=== PATIENT | male | born 1970 | race Caucasian/White ===

== ENCOUNTER → 2019-05-23 09:00 | Outpatient (CLI) | payer OTHER, SELFPAY ==
[2019-05-23 09:27] LABS: Basophils % 0.6 % (0.1-2.0); Eosinophils # 0.1 K/mm3 (0.0-0.4); Eosinophils % 1.7 % (0.1-12.0); Hematocrit 45.5 % (42.0-52.0); Hemoglobin 15.2 g/dL (14.1-18.0); Lymphocytes # 1.3 K/mm3 (0.7-4.5); Lymphocytes % 18.5 % (10-50); Mean Corpuscular HGB Conc 33.4 g/dL (31.8-35.4); Mean Corpuscular Hemoglobin 35.1 pg (27.0-31.2); Mean Corpuscular Volume 105.1 fl (80-94); Mean Platelet Volume 7.8 fl (7.4-10.4); Monocytes # 1.1 K/mm3 (0.1-1.0); Monocytes % 16.1 % (1.7-9.3); Neutrophils # 4.3 K/mm3 (1.8-7.8); Platelet Count 381 K/mm3 (142-424); Red Blood Count 4.33 M/mm3 (4.60-6.20); White Blood Count 6.8 K/mm3 (4.8-10.8)
[2019-05-23 11:13] LABS: Chloride 97 mmol/L (98-107)
[2019-05-23 11:14] LABS: Potassium 5.4 mmoL/L (3.5-5.1); Sodium 135 mmol/L (136-145)
[2019-05-23 11:16] LABS: Alanine Aminotransferase 274 U/L (12-78); Anion Gap 13.4 mEq/L (5-15); Aspartate Amino Transferase 129 U/L (17-59); Blood Urea Nitrogen 12 mg/dl (9-20); Carbon Dioxide 30 mmol/L (22.0-30.0); Estimated Glomerular Filt Rate 119 ml/min (>60); GFR (African American) 144 ML/MIN (>60)
[2019-05-23 11:17] LABS: Albumin Level 3.8 g/dl (3.5-5.0); Albumin/Globulin Ratio 1.5 (1.1-1.8); Alkaline Phosphatase 124 U/L (38-126); Bilirubin,Total 0.5 mg/dl (0.2-1.3); Calcium 9.4 mg/dl (8.4-10.2); Chol/HDL Ratio 3.2 (1-3.5); Cholesterol 168 mg/dl (140-200); Globulin 2.6 g/dL (1.3-3.2); Glucose 110 mg/dl (74-100); HDL Cholesterol 53 mg/dl (40-60); Total Protein,Serum 6.4 g/dl (6.3-8.2); Triglycerides 96 mg/dl (30-150); VLDL Cholesterol 19 mg/dL (0-40)
[2019-05-23 11:36] LABS: T4 (Thyroxine) 11.3 ug/dl (5.53-11.0)
[2019-05-23 11:49] LABS: Thyroid Stimulating Hormone 1.53 uIU/mL (0.465-4.68)
[2019-05-24 14:34] LABS: Amylase 69 U/L (30-110); Lipase 268 U/L (23-300)
[2019-05-24 15:38] LABS: Hemoglobin A1C 5.5 % (4.0-6.0)
[2019-05-25 06:41] LABS: Vitamin D 25 Hydroxy 24.7 ng/mL (30.0-100.0)
[2019-05-26 09:41] LABS: Hep A Ab, IgM Negative (Negative); Hepatitis B Core Antibody IgM Negative (Negative); Hepatitis B Surface Antigen Negative (Negative)
[2019-05-26 10:14] LABS: Hepatitis C Antibody <0.1 s/co ratio (0.0-0.9)
== END ==
PROVIDERS: Visit Provider Nurse Practitioner Family
DX: R53.83 Other fatigue (principal); R11.2 Nausea with vomiting, unspecified; F41.9 Anxiety disorder, unspecified; E55.9 Vitamin D deficiency, unspecified; R73.9 Hyperglycemia, unspecified; R74.8 Abnormal levels of other serum enzymes; Z76.89 Persons encountering health services in other specified circumstances; Z72.89 Other problems related to lifestyle
CPT/HCPCS: 36415; 71046; 80053; 80061; 80074; 82150; 82652; 83036; 83690; 84436; 84443; 85025

== ENCOUNTER 2021-04-29 19:00 | Emergency (ER) | payer OTHER, SELFPAY ==
[2021-04-29 19:01] VITALS: RESP 18; TEMP 36.6; O2SAT 99; BMI 25.8
[2021-04-29 19:03] VITALS: BP 116/79; PULSE 71; RESP 22; O2SAT 95
--- NOTE | 2021-04-29 19:06 | CT_ITS ---
PROCEDURE INFORMATION: Exam: CT Head Without Contrast Exam date and time: 04/29/2021 7:06 PM Age: 50 years old Clinical indication: Syncope and collapse; Patient HX: Patient passed out and fell in floor. Found by children in unresponsive state. ; Additional info: Syncope, loc TECHNIQUE: Imaging protocol: Computed tomography of the head without contrast. Radiation optimization: All CT scans at this facility use at least one of these dose optimization techniques: automated exposure control; mA and/or kV adjustment per patient size (includes targeted exams where dose is matched to clinical indication); or iterative reconstruction. COMPARISON: No relevant prior studies available. FINDINGS: Brain: No acute intracranial findings. No intracranial hemorrhage. No edema, swelling or mass-effect. There is mild generalized cerebral atrophy/volume loss, prominent for age. Browning-white matter differentiation is preserved. No significant white matter disease visible. Minimal left tentorial calcification. Cerebral ventricles: The ventricles are normal for age. No hydrocephalus. Paranasal sinuses: No acute findings in the visualized sinuses. No significant sinus opacification or air-fluid levels. Mild right maxillary sinus mucosal thickening. Mastoid air cells: Mastoids are unremarkable as visualized, no effusions. Auditory system: Minimal cerumen in the left external auditory canal. The middle ears appear clear. Orbital cavity: No acute findings in the orbits, as visualized. Vasculature: Minimal calcified plaques in the intracranial carotid arteries. Bones/joints: No acute skull fracture. No lytic lesions. Soft tissues: There are no soft tissue masses or fluid collections. Dental: Most of the teeth appear to be missing on the highway administrative engineer topogram. IMPRESSION: 1. No acute findings. 2. There is no CT evidence of intracranial mass, intracranial hemorrhage, or acute infarct. 3. Generalized cerebral cortical atrophy/volume loss, prominent for age. 4. Additional nonemergency and chronic findings as above.
--- NOTE | 2021-04-29 19:15 | HMH.EDGENADL ---
ED Disposition Condition on Discharge: Good - Critical Care Critical Care Time: No <NormaArcher - Last Filed: 04/29/21 19:31> Condition on Discharge: Good <Loren Roa - Last Filed: 04/29/21 22:48> Clinical Impression: Alcoholic intoxication Syncope Qualifiers: Syncope type: unspecified Qualified Code(s): R55 - Syncope and collapse Disposition: Still a Patient Additional Instructions: Please follow up with your primary care physician in 2-3 days for further management. Please avoid driving while drinking or any other high risk behaviors that may harm you or others. You have also been provided resources on Alcohol quitting. Please return for any concerning symptoms such as seizures, passing out, worsening weakness, chest pain, inability or difficulty walking or any other concerning symptoms. Referrals: Norberto Hayden MD [Primary Care Provider] - Attestation: On 04/29/21, the high probability of a clinically significant, sudden or life threatening deterioration of the following system(s) required my full and direct attention, intervention and personal management. The time I documented below is in addition to time spent performing reported procedures but includes the following listed in this critical care notation. Medical Decision Making - Medical Records Medical records reviewed: Yes: I reviewed the patient's medical records. - Ike Inquiry Pt receiving controlled substance: No <NormaGianni - Last Filed: 04/29/21 19:31> - Lab Data Result diagrams: 04/29/21 19:02 04/29/21 19:02 <Loren Roa - Last Filed: 04/29/21 22:48> Vital Signs: 04/29/21 19:01 04/29/21 22:14 Temperature 98 F 98.2 F Temperature Source Oral Oral Pulse Rate 83 Respiratory Rate 18 18 Blood Pressure 114/81 02 Sat by Pulse Oximetry 99 97 Oxygen Delivery Method Room Air - Lab Data Lab Results 04/29/21 19:02: Plasma/Serum Alcohol 226 H 04/29/21 19:02: WBC 7.3, RBC 4.03 L, Hgb 15.2, Hct 46.4, MCV 114.9 H, MCH 37.7 H, MCHC 32.8, RDW 12.8, Plt Count 210, MPV 7.6, Neut % (Auto) 67.3, Lymph % (Auto) 19.8, [place] % (Auto) 9.3, Eos % (Auto) 1.5, Baso % (Auto) 2.1 H, Neut # (Auto) 4.9, Lymph # (Auto) 1.4, [place] # (Auto) 0.7, Eos # (Auto) 0.1, Baso # (Auto) 0.2 04/29/21 19:02: Sodium 129 L, Potassium 3.9, Chloride 96 L, Carbon Dioxide 24, Anion Gap 12.9, BUN 5 L, Creatinine 0.60 L, Estimated Creat Clear 152, Estimated GFR 141, Est GFR ( Amer) 171, Glucose 86, Calcium 9.0, Total Bilirubin 0.7, AST 91 H, ALT 50, Alkaline Phosphatase 133 H, Total Protein 7.3, Albumin 4.6, Globulin 2.7, Albumin/Globulin Ratio 1.7 04/29/21 19:02: Troponin I < 0.01 04/29/21 19:40: Urine Color Yellow, Urine Appearance Clear, Urine pH 6.0, Ur Specific [place] <= 1.005, Urine Protein Negative, Urine Glucose (UA) Negative, Urine Ketones Negative, Urine Blood Negative, Urine Nitrate Negative, Urine Bilirubin Negative, Urine Urobilinogen 0.2, Ur Leukocyte Esterase Negative, Urine RBC None, Urine WBC Occasional, Ur Squamous Epith Cells None, Urine Bacteria Trace Orders (Tests/Meds): ED MEDICATIONS Generic Name Dose Route Start Last Admin Trade Name Freq PRN Reason Stop Dose Admin Multivitamins 10 ml/ Thiamine 1,015 mls @ 150 mls/hr 04/29/21 19:30 04/29/21 19:48 HCl 100 mg/ Magnesium Sulfate IV 04/30/21 02:15 150 mls/hr 2 gm/ Lactated Ringer's .[id number] ALEJANDRA Administration Discontinued Medications Generic Name Dose Route Start Last Admin Trade Name Freq PRN Reason Stop Dose Admin Folic Acid 1 mg 04/29/21 19:17 04/29/21 19:49 Folic Acid 1mg Tablet PO 04/29/21 19:18 1 mg ONCE ONE Administration ORDERS Category Date Time Status Troponin I Q3H Lab 04/29/21 23:15 Ordered Troponin I Q3H Lab 04/30/21 02:15 Ordered EKG Request [ECG Request by /Nse] Stat Y 04/29/21 19:08 Ordered General Adult HPI - General Mode of Arrival: EMS Limitations: No Limitations Description of Symptoms (Recalled from E
[2021-04-29 19:34] LABS: Basophils # 0.2 K/mm3 (0-0.2); Basophils % 2.1 % (0.1-2.0); Eosinophils # 0.1 K/mm3 (0.0-0.4); Eosinophils % 1.5 % (0.1-12.0); Hematocrit 46.4 % (42.0-52.0); Hemoglobin 15.2 g/dL (14.1-18.0); Lymphocytes # 1.4 K/mm3 (0.7-4.5); Lymphocytes % 19.8 % (10-50); Mean Corpuscular HGB Conc 32.8 g/dL (31.8-35.4); Mean Corpuscular Hemoglobin 37.7 pg (27.0-31.2); Mean Corpuscular Volume 114.9 fl (80-94); Mean Platelet Volume 7.6 fl (7.4-10.4); Monocytes # 0.7 K/mm3 (0.1-1.0); Monocytes % 9.3 % (1.7-9.3); Neutrophils # 4.9 K/mm3 (1.8-7.8); Neutrophils % 67.3 % (37.0-80.0); Platelet Count 210 K/mm3 (142-424); Red Blood Count 4.03 M/mm3 (4.60-6.20); Red Cell Distribution Width 12.8 % (11.5-17.5); White Blood Count 7.3 K/mm3 (4.8-10.8)
[2021-04-29 19:39] LABS: Chloride 96 mmol/L (98-107); Sodium 129 mmol/L (136-145)
[2021-04-29 19:40] LABS: Potassium 3.9 mmoL/L (3.5-5.1)
[2021-04-29 19:42] LABS: Alanine Aminotransferase 50 U/L (12-78); Albumin Level 4.6 g/dl (3.5-5.0); Albumin/Globulin Ratio 1.7 (1.1-1.8); Alkaline Phosphatase 133 U/L (38-126); Anion Gap 12.9 mEq/L (5-15); Aspartate Amino Transferase 91 U/L (17-59); Bilirubin,Total 0.7 mg/dl (0.2-1.3); Blood Urea Nitrogen 5 mg/dl (9-20); Carbon Dioxide 24 mmol/L (22.0-30.0); Creatinine Clearance Estimated 152 mL/min (50-200); Estimated Glomerular Filt Rate 141 ml/min (>60); Ethyl Alcohol 226 mg/dl (0-10); GFR (African American) 171 ML/MIN (>60); Globulin 2.7 g/dL (1.3-3.2); Glucose 86 mg/dl (74-100); Total Protein,Serum 7.3 g/dl (6.3-8.2)
[2021-04-29 19:44] LABS: Microscopic, Urine URINE MICROSCOPIC (MICROSCOPIC)
--- NOTE | 2021-04-29 19:53 | ECG_ITS ---
APPROVED REPORT Exam: Resting ECG HR:51 bpm ECG Measurements Heart Rate 51 AXES SD 117 P 0 QRSd 102 QRS 55 QT 471 T 49 QTc 449 Conclusion SINUS BRADYCARDIA WITH SHORT SD INTERVAL BORDERLINE ECG UNCONFIRMED REPORT Electronically signed by : Wilian Godoy MD 05/01/2021 19:34:17
[2021-04-29 19:55] LABS: Appearance,Urine CLEAR (Clear); Bilirubin,Urine Negative (Negative); Blood, Urine Negative (Negative); Color,Urine YELLOW (Yellow); Glucose,Urine (UA) Negative (Negative); Ketones,Urine Negative (Negative); Leukocyte Esterase,Urine Negative (Negative); Nitrate,Urine Negative (Negative); Protein,Urine Negative (Negative); Specific Gravity, Urine <= 1.005 (1.005-1.030); Urobilinogen,Urine 0.2 EU/dl (0.2)
[2021-04-29 19:59] LABS: Bacteria,Urine Trace /lpf; WBC,Urine Occasional #/hpf (0-3)
[2021-04-29 20:37] LABS: Troponin I < 0.01 ng/ml (0.00-0.034)
[2021-04-29 21:00] VITALS: BP 109/82; PULSE 60; RESP 15; O2SAT 97
[2021-04-29 22:14] VITALS: BP 114/81; PULSE 83; RESP 18; TEMP 36.8; O2SAT 97
[2021-04-29 23:00] VITALS: BP 116/74; PULSE 60; RESP 14; TEMP 36.6; O2SAT 98
== END 2021-04-29 23:08 | disposition still patient (30) ==
PROVIDERS: Emergency Provider Emergency Medicine; PCP Emergency Medicine
DX: R55 Syncope and collapse (principal); F10.129 Alcohol abuse with intoxication, unspecified; I10 Essential (primary) hypertension; F41.9 Anxiety disorder, unspecified; F17.210 Nicotine dependence, cigarettes, uncomplicated
CPT/HCPCS: 70450; 80053; 81001; 84484; 85025; 93005; 96365; 99283

== ENCOUNTER → 2021-10-21 17:17 | Outpatient (CLI) | payer OTHER, SELFPAY ==
[2021-10-21 15:22] LABS: Cholesterol 206 mg/dl (140-200); HDL Cholesterol 52 mg/dl (40-60); Triglycerides 355 mg/dl (30-150); VLDL Cholesterol 71 mg/dL (0-40)
[2021-10-21 15:33] LABS: Direct LDL Cholesterol 115.05 mg/dL (100-129)
== END ==
PROVIDERS: PCP Family Medicine; Visit Provider Family Medicine
DX: E78.5 Hyperlipidemia, unspecified (principal)
CPT/HCPCS: 80061

== ENCOUNTER → 2021-10-27 10:00 | Outpatient (CLI) | payer OTHER, SELFPAY ==
[2021-10-27 10:53] LABS: Basophils % 0.5 % (0.1-2.0); Eosinophils # 0.1 K/mm3 (0.0-0.4); Eosinophils % 0.8 % (0.1-12.0); Hematocrit 48.4 % (42.0-52.0); Hemoglobin 15.4 g/dL (14.1-18.0); Lymphocytes # 0.7 K/mm3 (0.7-4.5); Lymphocytes % 8.9 % (10-50); Mean Corpuscular HGB Conc 31.8 g/dL (31.8-35.4); Mean Corpuscular Volume 113.1 fl (80-94); Mean Platelet Volume 8.3 fl (7.4-10.4); Monocytes # 0.8 K/mm3 (0.1-1.0); Monocytes % 10.5 % (1.7-9.3); Neutrophils # 6.4 K/mm3 (1.8-7.8); Neutrophils % 79.3 % (37.0-80.0); Platelet Count 202 K/mm3 (142-424); Red Blood Count 4.28 M/mm3 (4.60-6.20); Red Cell Distribution Width 12.9 % (11.5-17.5); White Blood Count 8.1 K/mm3 (4.8-10.8)
[2021-10-27 11:15] LABS: Alanine Aminotransferase 63 U/L (12-78); Albumin Level 4.2 g/dl (3.5-5.0); Alkaline Phosphatase 198 U/L (38-126); Amylase 76 U/L (30-110); Anion Gap 12.3 mEq/L (5-15); Aspartate Amino Transferase 129 U/L (17-59); Bilirubin,Direct 0.5 mg/dl (0.0-0.4); Bilirubin,Indirect 0.8 mg/dL (0.0-0.9); Bilirubin,Total 1.3 mg/dl (0.2-1.3); Bilirubin,Unconjugated 0.8 mg/dL (0.0-1.1); Blood Urea Nitrogen 7 mg/dl (9-20); Calcium 9.5 mg/dl (8.4-10.2); Carbon Dioxide 29 mmol/L (22.0-30.0); Chloride 94 mmol/L (98-107); Estimated Glomerular Filt Rate 141 ml/min (>60); GFR (African American) 171 ML/MIN (>60); Glucose 131 mg/dl (74-100); Lipase 137 U/L (23-300); Magnesium 1.9 mg/dl (1.6-2.3); Potassium 4.3 mmoL/L (3.5-5.1); Sodium 131 mmol/L (136-145)
[2021-10-27 11:24] LABS: NT Pro Brain Natriuretic Pep. 190 pg/mL (0-125)
[2021-10-27 11:25] LABS: Troponin I < 0.01 ng/ml (0.00-0.034)
[2021-10-27 11:30] LABS: Free T4 (Free Thyroxine) 0.96 ng/dl (0.78-2.19)
[2021-10-27 11:43] LABS: Thyroid Stimulating Hormone 3.37 uIU/mL (0.465-4.68)
[2021-10-27 13:28] LABS: Hemoglobin A1C 4.7 % (4.0-6.0)
== END ==
PROVIDERS: PCP Family Medicine; Visit Provider Physician Assistant
DX: R06.00 Dyspnea, unspecified (principal); Z01.810 Encounter for preprocedural cardiovascular examination; R07.9 Chest pain, unspecified; R07.89 Other chest pain; I10 Essential (primary) hypertension; E78.1 Pure hyperglyceridemia; R20.0 Anesthesia of skin; R42 Dizziness and giddiness; R53.83 Other fatigue; R55 Syncope and collapse; R60.0 Localized edema; F32.A Depression, unspecified; F43.10 Post-traumatic stress disorder, unspecified; K42.9 Umbilical hernia without obstruction or gangrene; Z82.49 Family history of ischemic heart disease and other diseases of the circulatory system; Z98.1 Arthrodesis status
CPT/HCPCS: 36415; 80048; 80076; 82150; 83036; 83690; 83735; 83880; 84439; 84443; 84484; 85025

== ENCOUNTER → 2021-10-31 06:34 | Outpatient (CLI) | payer OTHER, SELFPAY ==
--- NOTE | 2021-10-31 | US_ITS ---
FINAL REPORT CLINICAL HISTORY: smoker, HTN, HLD, CP, Edema, SOB, Pre-op, Alcohol use FINDINGS: BILATERAL ANKLE BRACHIAL INDICES Pressure indices are as follows are: RIGHT LOWER EXTREMITY Ankle brachial pressure index: 1.36 Toe brachial pressure index: 0.93 COMMENTS: Normal LEFT LOWER EXTREMITY Ankle brachial pressure index: 1.41 Toe brachial pressure index: 0.92 COMMENTS: Normal IMPRESSION: No evidence of significant obstructive peripheral vascular disease of the lower extremities. Reviewed, Interpreted and Dictated by Arian Younger III, MD Transcribed by Carmelita Claudio Authenticated and [facility]
--- NOTE | 2021-10-31 06:34 | CA_ITS ---
APPROVED REPORT EXAM: Comprehensive 2D, Doppler, and color-flow Echocardiogram Salt Grinder: Karyna Bose RDCS Ht: 5 ft 7 in Wt: 149lbs BSA: 1.78 BP: 117/82 mmHg Indications: cp,smoker,soa,syncope,edema,htn,hlp 2D Dimensions LVOT 2.08 cm (M/F) 1.5-2.5 M-Mode Dimensions RVDd 2.62 cm (0.9-2.6) LA Diam 3.52 cm (1.9-4.0) LVDd 5.70 cm (3.5-5.7) Ao Diam 3.59 cm (2.0-3.7) LVDs 3.91 cm (3.5-5.7) IVSd 0.83 cm (0.6-1.1) PWd 0.68 cm (0.6-1.1) EF (Teich) 58.60% FS 31.40% EDV (Teich) 160.00 mL TAPSE 2.44 (<1.7) ESV (Teich) 66.30 mL LV Diastology E Decel Time 160.00 (160-240 msec) E/A Ratio 1.4 MED E' 9.80 (< 7 cm/sec) E'/MED E' Ratio 7.97 (>14) LAT E' 11.10 (<10 cm/sec) E/LAT E' Ratio 7.04 (>14) Mitral Valve MV E Max Neto. 78.00 (40-130 cm/s) MV A Velocity 54.00 (40-130 cm/s) E/A Ratio 1.44 MV Decel. Time 160.00 (160-240 ms) MV PHT 47.00 ms Left Ventricle Left atrium is mildly enlarged, left ventricle is normal size estimated ejection fraction 55% with no regional wall motion abnormality, there is no concentric left ventricular hypertrophy, diastolic parameters are inconclusive. Right Ventricle Right atrium and right ventricle mildly enlarged with normal contractility. Aortic Valve Aortic valve is minimally thickened and fibrosed there is no aortic stenosis or aortic insufficiency. Mitral Valve Mitral valve is grossly normal. There is trace mitral regurgitation. Tricuspid Valve Tricuspid grossly normal, there is trace tricuspid regurgitation, tricuspid regurgitation jet velocity is inadequate for calculation of the right ventricular systolic pressure. Pulmonic Valve Pulmonic valve is poorly visualized. Great Vessels Aortic root is normal size. Inferior vena cava normal 7 normal inspiratory collapse. Pericardium No significant pericardial effusion noted. Conclusion 1. Mild biatrial enlargement, normal left ventricular size, estimated ejection fraction 55% with no regional wall motion abnormality, diastolic Parameters are inconclusive. 2. Mildly enlarged right ventricle with normal contractility. 3. Trace mitral and tricuspid regurgitation. 4. No significant pericardial effusion. 5. Inferior vena cava normal size with normal inspiratory collapse. Electronically signed by : Buzz Cano MD 10/31/2021 13:26:49
--- NOTE | 2021-10-31 06:34 | CA_ITS ---
APPROVED REPORT Exam: Pharmacologic Technologist: Yomaira Mtz, Ht: 5 ft 7 in Wt: 149 lbs BSA: 1.78 m2 HR: 68 bpm BP: 116/71 mmHg Medical History Medications: Lisinopril,,,,, PraZOSIN,,,,, Metoprolol Succinate ER,,,,, BuPROPION HCI,,,,, Stress Test Details Test: LEXISCAN Reason for pharmacologic stress test: physical limitation. HR Resting HR: 70 bpm Max Heart Rate (APMHR): 167.588030 bpm Max HR Achieved: 149 bpm Target HR (85% APMHR): 141.932088 bpm % of APMHR: 89.22 Recovery HR: 94 bpm BP Resting BP: 116/71 mmHg Max BP: 147/79 mmHg Recovery BP: 136.0/82.0 mmHg ECG Resting ECG: SR Clinical Exercise duration: 04:00 min Highest Stage Achieved: Exercise capacity: 1.0 METs Stress ECG Conclusion Symptoms: SOA & nausea w/ Lexiscan. Dry heaving w/ Lexiscan. Arrhythmias/Ectopy: None- motion artifact. ST-T Changes: <1.5mm ST Segment changes. Electronically signed by : Buzz Cano MD 10/31/2021 11:38:30
--- NOTE | 2021-10-31 06:34 | NM_ITS ---
APPROVED REPORT Exam: Nuclear Stress Test Indication: HTN, TOB USE, FM HX, C.P., SOB, SYNCOPE, EDEMA Patient Location: Outpatient Stress Tech: Yomaira Agarwal [place] Tech:DARLEEN Ramirez RT(R)(N) Ht: 5 ft 7 in Wt: 149 lbs HR: 68 bpm BP: 116/71 mmHg BSA: 1.78 m2 TID: 1.09 BMI: 23.3 History: HTN, TOB USE, FM HX, C.P., SOB, SYNCOPE, EDEMA Procedure: Patient received a 0.4 mg of intravenous Lexiscan, resting heart rate 68 bpm, resting blood pressure 116/71 mmHg, with Lexiscan maximum heart rate achived was 138 bpm which is Less than 85 % of the maximum predicted heart rate and blood pressure was 147/79 mmHg. With Lexiscan, patient denied any complaint of chest pain. SOA, NAUSEA Electrocardiogram Resting electrocardiogram shows sinus rhythm, with Lexiscan there is less than 1.[address] segment depression noted from the baseline EKG. The EKG portion of the Lexiscan is nondiagnostic. Cardiac Stress and Resting SPECT Images: Cardiac Stress and Resting SPECT images were obtained using technetium 99m Myoview 32.8 mCi stress and 9.71 mCi at rest. Gated SPECT analysis of segmental wall motion and calculation of the ejection fraction also done, prone images were also obtained. Cardiac stress and rest SPECT images show uniform myocardial activity without segmental perfusion abnormality, computer derived ejection fraction 56% with no regional wall motion abnormality, right ventricle is normal size and contractility. Conclusion: 1. The EKG portion of the Lexiscan is nondiagnostic. 2. No scintigraphic evidence of reversible ischemia seen, compared to ejection fraction is 56% with no regional wall motion abnormality, right ventricle is normal size and contractility. 3. Normal Lexiscan Myoview study. Electronically signed by : Buzz Cano MD 10/31/2021 11:40:25
== END ==
PROVIDERS: PCP Family Medicine; Visit Provider Physician Assistant
DX: R06.00 Dyspnea, unspecified (principal); R07.89 Other chest pain; R07.9 Chest pain, unspecified; R42 Dizziness and giddiness; R55 Syncope and collapse; Z01.810 Encounter for preprocedural cardiovascular examination; I10 Essential (primary) hypertension; R20.0 Anesthesia of skin; R53.83 Other fatigue; R60.0 Localized edema; Z82.49 Family history of ischemic heart disease and other diseases of the circulatory system; Z98.1 Arthrodesis status
CPT/HCPCS: 78452; 93017; 93306; 93923; A9502; J2785

== ENCOUNTER 2022-05-20 10:30 | Emergency (ER) | payer OTHER, SELFPAY ==
[2022-05-20] VITALS (12 sets, daily range): BP systolic 114–137; BP diastolic 71–95; PULSE 67–97; RESP 14–20; TEMP 36.6; O2SAT 96–99; BMI 22.8
--- NOTE | 2022-05-20 10:26 | ECG_ITS ---
APPROVED REPORT Exam: Resting ECG HR:70 bpm ECG Measurements Heart Rate 70 AXES AL 159 P 134 QRSd 110 QRS 68 QT 403 T 101 QTc 425 Conclusion SINUS RHYTHM LOW QRS VOLTAGE IN EXTREMITY LEADS [QRS DEFLECTION < 0.5 mV IN LIMB LEADS] BORDERLINE ECG UNCONFIRMED REPORT Electronically signed by : Wilian Godoy MD 05/20/2022 14:11:13
--- NOTE | 2022-05-20 10:43 | XR_ITS ---
FINAL REPORT CLINICAL HISTORY: shortness of air COMPARISON: 01/09/2019 FINDINGS: A single portable view of the chest was obtained. The heart size and pulmonary vascularity are within normal limits. The mediastinum is within normal limits. No acute pulmonary abnormality is identified. The bony thorax is intact. IMPRESSION: No active cardiopulmonary disease. Reviewed, Interpreted and Dictated by Arian Younger III, MD Transcribed by Nelia Bynum Authenticated and [facility]
[2022-05-20 10:47] LABS: Coronavirus 19, PCR Not Detected (NotDetected); Influenza A, PCR Not Detected (NotDetected); Influenza B, PCR Not Detected (NotDetected)
[2022-05-20 10:52] LABS: Basophils # 0.1 K/mm3 (0-0.2); Basophils % 1.6 % (0.1-2.0); Eosinophils # 0.1 K/mm3 (0.0-0.4); Eosinophils % 0.9 % (0.1-12.0); Hematocrit 39.3 % (42.0-52.0); Lymphocytes # 0.6 K/mm3 (0.7-4.5); Lymphocytes % 9.1 % (10-50); Mean Corpuscular HGB Conc 33.1 g/dL (31.8-35.4); Mean Corpuscular Hemoglobin 37.1 pg (27.0-31.2); Mean Platelet Volume 8.1 fl (7.4-10.4); Monocytes # 0.6 K/mm3 (0.1-1.0); Monocytes % 8.5 % (1.7-9.3); Neutrophils # 5.5 K/mm3 (1.8-7.8); Neutrophils % 79.9 % (37.0-80.0); Platelet Count 247 K/mm3 (142-424); Red Blood Count 3.51 M/mm3 (4.60-6.20); White Blood Count 6.9 K/mm3 (4.8-10.8)
[2022-05-20 10:56] LABS: Chloride 99 mmol/L (98-107)
[2022-05-20 10:57] LABS: Potassium 3.9 mmoL/L (3.5-5.1); Sodium 131 mmol/L (136-145)
[2022-05-20 10:59] LABS: Alanine Aminotransferase 57 U/L (12-78); Albumin Level 4.4 g/dl (3.5-5.0); Albumin/Globulin Ratio 1.3 (1.1-1.8); Alkaline Phosphatase 182 U/L (38-126); Anion Gap 8.9 mEq/L (5-15); Aspartate Amino Transferase 159 U/L (17-59); Bilirubin,Total 1.5 mg/dl (0.2-1.3); Blood Urea Nitrogen 7 mg/dl (9-20); Calcium 8.7 mg/dl (8.4-10.2); Carbon Dioxide 27 mmol/L (22.0-30.0); Creatinine Clearance Estimated 135 mL/min (50-200); Estimated Glomerular Filt Rate 140 ml/min (>60); GFR (African American) 170 ML/MIN (>60); Globulin 3.5 g/dL (1.3-3.2); Glucose 126 mg/dl (74-100); Total Protein,Serum 7.9 g/dl (6.3-8.2)
[2022-05-20 11:00] LABS: Lactic Acid 1.1 mmol/L (0.7-2.1)
[2022-05-20 11:17] LABS: Troponin I < 0.01 ng/ml (0.00-0.034)
[2022-05-20 11:23] LABS: Microscopic, Urine URINE MICROSCOPIC (MICROSCOPIC)
[2022-05-20 11:28] LABS: Appearance,Urine CLEAR (Clear); Bilirubin,Urine Negative (Negative); Blood, Urine Negative (Negative); Color,Urine ORANGE (Yellow); Glucose,Urine (UA) Negative (Negative); Ketones,Urine 1+ (Negative); Leukocyte Esterase,Urine Negative (Negative); Nitrate,Urine Negative (Negative); Protein,Urine TRACE (Negative); Specific Gravity, Urine >= 1.030 (1.005-1.030)
--- NOTE | 2022-05-20 11:42 | HMH.EDGENADL ---
Discharge Plan Disposition Patient Disposition: Home, Self-Care Condition: Good Prescriptions Prescriptions: No Action bupropion HCl [Wellbutrin SR] 150 mg tablet sustained-release 12 hr 150 mg PO BID Qty: 180 3RF metoprolol succinate 25 mg tablet extended release 24 hr 25 mg PO QDAY Qty: 90 3RF omeprazole 40 mg capsule,delayed release(DR/EC) 40 mg PO DAILY aspirin 81 mg tablet,delayed release (DR/EC) 81 mg PO atorvastatin 40 mg tablet 40 mg PO DAILY Qty: 90 3RF lisinopril 10 mg tablet 10 mg PO QDAY Qty: 90 3RF Referrals Follow up/Referrals: Dev Mackay DO [Staff Physician] - See instructions Lex Saldaña MD [Staff Physician] - See instructions Activity Restrictions/Add. Instructions Additional Instructions/Restrictions: Do not take any aspirin until further instructed by Dr. Saldaña. Come to the hospital tomorrow at 6 AM for endoscopy by Dr. Saldaña, to be performed at 7 AM. Do not eat or drink anything after midnight tonight. Return to the emergency room if vomiting blood, fainting, chest pain, shortness of breath, or severe abdominal pain. Follow-up with Dr. Mackay, orthopedics, for avascular necrosis of your hips Clinical Impressions Clinical Impression: Melena, Abdominal contusion, Contusion of hip, CHI (closed head injury), Cervical muscle strain, Avascular necrosis of bone of hip Discharge ED Provider: Jermaine Null General Adult HPI General Chief complaint: Shortness of Breath/Dyspnea Stated complaint: chest pain Time Seen by Provider: 05/20/22 11:42 Mode of Arrival: Ambulatory Source of Information: Patient Limitations: No Limitations Description of Symptoms (Recalled from ER Triage Doc. by RN): Pt reports advised to ED by PCP Maulik, recent hospitalization; c/o weakness, malaise, black tarry stool x 8 days, recent fall w abd pain and bruising, dyspnea on exertion History of Present Illness HPI narrative: The patient is sent here by the lifts and cranes inspector's office. He saw Dr. Willingham, his PCP, in the office yesterday and was recommended to come to the emergency department. However, he says he did not do it because he knew he had a cardiology appointment today and preferred just to see them. States that he was recently admitted to [facility] for stroke. After discharge she says that he was at a restaurant 8 days ago and fell. He says that his son told him that he was unconscious. He says that he hit his head, he still has a mild headache, neck pain, has bruising of his abdomen on the left anterior abdominal wall and bruising of his left hip, all of which still hurt, also anterior chest hurts since then. He says that since that fall he has had black tarry stool. He complains of weakness and dyspnea on exertion. He takes omeprazole 40 mg daily. Related Data Home Medications Medication Instructions Recorded Confirmed omeprazole 40 mg capsule,delayed 40 mg PO DAILY 04/27/22 05/20/22 release aspirin 81 mg tablet,delayed 81 mg PO 05/19/22 05/20/22 release Previous Rx's Medication Instructions Recorded bupropion HCl 150 mg tablet,12 hr 150 mg PO BID #180 ea 10/21/21 sustained-release (Wellbutrin SR) metoprolol succinate 25 mg 25 mg PO QDAY #90 tabs 10/27/21 tablet,extended release 24 hr lisinopril 10 mg tablet 10 mg PO QDAY #90 tabs 04/14/22 atorvastatin 40 mg tablet 40 mg PO DAILY #90 tabs 05/19/22 Allergies Allergy/AdvReac Type Severity Reaction Status Date / Time venom-honey bee Allergy Severe Hives Verified 05/20/22 09:58 [bee venom (honey bee)] Penicillins [PENICILLINS] Allergy Unknown Verified 05/20/22 09:58 [facility] Disclaimer: The information contained in this section may have been updated after the patient was seen, as this information can be updated by other users. Medical History (Updated 05/20/22 @ 14:42 by Jermaine Null MD) Chest tightness HTN (hypertension) Social History (Reviewed 05/20/22 @ 09:58 by
[2022-05-20 11:45] LABS: Bacteria,Urine Trace /lpf; Mucus,Urine 2+ /lpf; RBC,Urine Occasional #/hpf (0-3); Squamous Epithelial Cell,Urine Occasional #/hpf (0-5)
[2022-05-20 11:46] LABS: Occult Blood,Stool Positive (Negative)
--- NOTE | 2022-05-20 11:54 | CT_ITS ---
FINAL REPORT CLINICAL HISTORY: fall COMPARISON: 05/04/2022 FINDINGS: Axial images of the head were obtained without contrast. Coronal reformatted images were also obtained. This study was performed with techniques to keep radiation doses as low as reasonably achievable (ALARA). Individualized dose reduction techniques using automated exposure control or adjustment of mA and/or kV according to the patient's size were employed. There is generalized age-appropriate atrophy. Periventricular low-attenuation areas are seen consistent with mild chronic ischemic changes. There is no evidence of intracranial hemorrhage or mass. There is no evidence of acute infarct. There is no evidence of shift of the midline structures. No skull abnormality is seen on the bone window images. IMPRESSION: Atrophy and mild periventricular chronic ischemic changes. No acute intracranial abnormality identified. Reviewed, Interpreted and Dictated by Arian Younger III, MD Transcribed by Any Mendoza Authenticated and [facility]
--- NOTE | 2022-05-20 11:54 | CT_ITS ---
FINAL REPORT TECHNIQUE: Postcontrast axial images through the abdomen and pelvis were performed. This study was performed with techniques to keep radiation doses as low as reasonably achievable, (ALARA). Individualized dose reduction techniques using automated exposure control or adjustment of mA and/or kV according to the patient's size were employed. CLINICAL HISTORY: fall, bruised and painful abdomen FINDINGS: Abdomen: There is mild atelectasis in the right lung base. There is fatty infiltration of the liver. There is mild nonspecific gallbladder wall thickening. The spleen is unremarkable. The adrenals are normal. The pancreas is unremarkable. Small right renal cyst is identified. The aorta is normal in caliber. No free fluid or adenopathy is identified. No findings for mechanical bowel obstruction are identified. There is no evidence of hemoperitoneum. Small left inguinal hernia containing fat is seen. Pelvis: The appendix is not identified. The urinary bladder is unremarkable. No free fluid, free air, abscess or adenopathy is identified. There is fusion from L4-S1. There is avascular necrosis of the bilateral superior femoral heads. IMPRESSION: No evidence of hemoperitoneum. Avascular necrosis of the bilateral superior femoral heads. Reviewed, Interpreted and Dictated by Arian Younger III, MD Transcribed by Any Mendoza Authenticated and [facility]
--- NOTE | 2022-05-20 11:54 | CT_ITS ---
FINAL REPORT CLINICAL HISTORY: fall FINDINGS: Axial CT images of the cervical spine were obtained without contrast. Sagittal and coronal reformatted images were also obtained. This study was performed with techniques to keep radiation doses as low as reasonably achievable (ALARA). Individualized dose reduction techniques using automated exposure control or adjustment of mA and/or kV according to the patient's size were employed. There is no evidence of fracture or dislocation. The bony alignment is normal. There are mild and moderate degenerative changes. There is no evidence of canal stenosis. No paraspinous soft tissue abnormality is seen. IMPRESSION: Degenerative changes without acute bony abnormality. Reviewed, Interpreted and Dictated by Arian Younger III, MD Transcribed by Any Mendoza Authenticated and [facility]
--- NOTE | 2022-05-20 11:55 | XR_ITS ---
FINAL REPORT CLINICAL HISTORY: fall, bruised hip FINDINGS: Left hip Three views were obtained. There is no acute fracture or dislocation. There is abnormal signal in the bilateral superior femoral heads. There is no evidence of flattening. The joint spaces appear normal. No soft tissue abnormality is identified. IMPRESSION: Avascular necrosis of the bilateral superior femoral heads. Reviewed, Interpreted and Dictated by Arian Younger III, MD Transcribed by Any Mendoza Authenticated and [facility]
[2022-05-20 12:03] LABS: INR 1.14 (0.9-1.1); Prothrombin Time 12.2 seconds (10.1-12.5)
--- NOTE | 2022-05-20 13:01 | PC.NURSE ---
preliminary rad results given to IRA COLEMAN
--- NOTE | 2022-05-20 13:29 | PC.NURSE ---
waiting electronic induction hardener back from dr. reeves
--- NOTE | 2022-05-20 13:43 | PC.NURSE ---
IRA COLEMAN speaking with Dr. Saldaña
--- NOTE | 2022-05-20 13:50 | PC.NURSE ---
IRA COLEMAN speaking with Dr. Hayden
[2022-05-20 14:13] LABS: Troponin I < 0.01 ng/ml (0.00-0.034)
--- NOTE | 2022-05-20 14:20 | PC.NURSE ---
Called Dr Tolliver for consult on patient. Stated that he was in a room and would call extension [phone] when he comes out of room
--- NOTE | 2022-05-20 14:24 | PC.NURSE ---
IRA COLEMAN speaking with dr. reeves
--- NOTE | 2022-05-20 14:26 | PC.NURSE ---
IRA COLEMAN states Dr. Saldaña plans to scope pt tomorrow, he is going to have his office staff and pre-op staff coordinate and call us with instructions for pt.
--- NOTE | 2022-05-20 14:33 | PC.NURSE ---
BJ from surgery called. Pt is scheduled for procedure at 7am, needs to be here at 6 am and nothing to eat or drink after midnight.
== END 2022-05-20 15:55 | disposition home or self-care (01) ==
PROVIDERS: Emergency Provider Emergency Medicine; PCP Family Medicine
DX: S09.8XXA Other specified injuries of head, initial encounter (principal); S16.1XXA Strain of muscle, fascia and tendon at neck level, initial encounter; M87.052 Idiopathic aseptic necrosis of left femur; S70.02XA Contusion of left hip, initial encounter; S30.1XXA Contusion of abdominal wall, initial encounter; K62.5 Hemorrhage of anus and rectum; W19.XXXA Unspecified fall, initial encounter; Z86.73 Personal history of transient ischemic attack (TIA), and cerebral infarction without residual deficits; R07.89 Other chest pain; I10 Essential (primary) hypertension; Z20.822 Contact with and (suspected) exposure to COVID-19
CPT/HCPCS: 36415; 70450; 71045; 72125; 73502; 74177; 80053; 81001; 82272; 83605; 84484; 85025; 85610; 93005; 99285; C9803; G0328; Q9967; U0003; U0005

== ENCOUNTER 2022-05-21 05:56 | Day surgery (SDC) | payer OTHER, SELFPAY ==
[2022-05-21 06:27] VITALS: BP 120/83; PULSE 83; RESP 18; TEMP 37.2; O2SAT 98; BMI 23.5
[2022-05-21 06:46] LABS: Hematocrit 35.7 % (42.0-52.0); Hemoglobin 11.7 g/dL (14.1-18.0)
--- NOTE | 2022-05-21 06:53 | P.PN_ITS ---
[facility] Disclaimer: The information contained in this section may have been updated after the patient was seen, as this information can be updated by other users. Medical History (Updated 05/21/22 @ 06:25 by Charmaine Araujo RN) Chest tightness HTN (hypertension) Hyperlipidemia Family History (Updated 05/21/22 @ 06:25 by Charmaine Araujo RN) Other Family history of cancer Family history of myocardial infarction Social History (Updated 05/21/22 @ 06:27 by Charmaine Araujo RN) Smoking Status: Current every day smoker tobacco type: cigarettes packs per day: 1 pack-years: 25 alcohol intake: current substance use type: marijuana current occupational status: unemployed and other Travel in the last 8 weeks: None household members: spouse housing: house lives independently: No marital status: education level: high school caffeine: Yes special tasha needs: No agree to transfusion: No do you feel safe at home: Yes victim of physical abuse: No victim of emotional abuse: No victim of sexual abuse: No would you like helpful sources: No [facility] Anesthesia Checklist Patient Identification Patient Identification: Arm Band and Family Structural Data Admitted From: Home Planned Operative Procedure/s: EGD Consent for Planned Operative Procedure(s) Verified: Yes Verified Documents: Surgical Consent and History and Physical NPO Status Verified Time NPO: 00:00 Additional verifications Patient : No Anesthesia Reactions: No Hx Blood Transfusions: No Blood Transfusion Reaction: No Cephalosporin Allergy: No Previous Colonoscopy: No Airway Assessment C-Spine Mobility Assessed: Yes TMJ Mobility Assessed: Yes Dentition: Edentulous Neurological Assessment Level of Consciousness: Awake, Alert, Appropriate and Follows Commands Hx Seizures: No Numbness or tingling in extremities: No Anesthesia Plan Anesthesia Risk discussed: Yes ASA Class: II Anesthesia Type: MAC Preoperative Comments Pre-Operative Comments: Smokes one pack per day. Also smokes Marijuana. Hypertension, Takes Metoprolol.
[2022-05-21 06:58] VITALS: O2SAT 98
--- NOTE | 2022-05-21 07:29 | [facility].SCOPE ---
Procedure: Date: 05/21/22 Patient Date of :: 1970 Procedure Performed:: Esophagogastroduodenoscopy with biopsy Indications:: Melena Performing Provider:: Lex Saldaña MD Referring Provider:: . Sedation:: Monitored anesthesia care Procedure:: After informed consent was obtained the patient was taken to the endoscopy suite. Sedation ensued after the patient was transferred to the left lateral decubitus position. Pulse, blood pressure, and oxygen saturation were monitored throughout the procedure. The endoscope was advanced beyond the duodenal bulb. Retroflexion within the gastric lumen was accomplished. The gastroscope was carefully removed and the patient was transferred to recovery in stable condition. Please see findings and specimens below for detail. Findings:: Gastroesophageal junction at 40 cm Medium sliding hiatal hernia (no obvious Ji lesion noted; however, visualization somewhat limited secondary to lack of complete relaxation) No sign of active or recent hemorrhage No obvious ulceration or mass Patchy gastritis (mild) Specimens:: Antral biopsy Recommendations:: Follow-up pathology Consider further evaluation of entire gastrointestinal tract May require repeat esophagogastroduodenoscopy to evaluate for possible small Ji lesion Serial hemoglobin/hematocrit Complications:: No immediate Estimated blood obtained (mL): 1
[2022-05-21 07:30] VITALS: BP 118/72; PULSE 103; RESP 14; TEMP 36.9; O2SAT 97
[2022-05-21 07:40] VITALS: BP 93/54; PULSE 90; RESP 16; O2SAT 97
[2022-05-21 07:50] VITALS: BP 111/67; PULSE 102; RESP 17; O2SAT 98
[2022-05-21 08:00] VITALS: BP 125/76; PULSE 77; RESP 17; O2SAT 99
== END 2022-05-21 08:09 | disposition home or self-care (01) ==
PROVIDERS: PCP Family Medicine; Visit Provider Surgery
PROC: 0DJ08ZZ Inspection of Upper Intestinal Tract, Via Natural or Artificial Opening Endoscopic (ICD-10-PCS; CPT 43235; principal; 2022-05-21 07:00)
DX: K92.1 Melena (principal); K44.9 Diaphragmatic hernia without obstruction or gangrene; K29.70 Gastritis, unspecified, without bleeding; F17.210 Nicotine dependence, cigarettes, uncomplicated; Z79.899 Other long term (current) drug therapy
CPT/HCPCS: 43239; 85014; 85018

== ENCOUNTER → 2022-05-29 09:34 | Outpatient (CLI) | payer OTHER, SELFPAY ==
[2022-05-29 09:56] LABS: Hematocrit 35.9 % (42.0-52.0); Hemoglobin 12.2 g/dL (14.1-18.0)
== END ==
PROVIDERS: PCP Family Medicine; Visit Provider Surgery
DX: K92.1 Melena (principal)
CPT/HCPCS: 36415; 85014; 85018

== ENCOUNTER → 2022-06-08 07:56 | Outpatient (CLI) | payer OTHER, SELFPAY ==
--- NOTE | 2022-06-08 08:04 | FL_ITS ---
FINAL REPORT CLINICAL HISTORY: . anemia, black stool x 20 days FINDINGS: UPPER GI WITH SBFT HISTORY: Anemia. Black stool. PROCEDURE: The patient ingested barium. Effervescent crystals were also administered. Spot and overhead films were obtained. Additional barium was administered for a SBFT. FINDINGS: UGI: The esophagus is normal. There is no hiatal hernia. There is no gastroesophageal reflux. Peristalsis is normal. The rugal fold pattern of the stomach is normal. The duodenal bulb is normal. SBFT: The legal support manager film is normal. There is no evidence of obstruction. The mucosal fold pattern is normal. The terminal ilium is normal. FLUOROSCOPY TIME: 6 minutes 42 seconds. 32 radiographs were obtained. IMPRESSION: Normal upper GI. Normal SBFT. Films reviewed , interpreted and dictated by Dr. Younger. Transcribed by Pritesh Wiggins PA-C. Reviewed, Interpreted and Dictated by Arian Younger III, MD Transcribed by DEION Posadas Authenticated and [facility]
== END ==
PROVIDERS: PCP Family Medicine; Visit Provider Surgery
DX: K92.1 Melena (principal); D64.9 Anemia, unspecified
CPT/HCPCS: 74246; 74248